=== PATIENT | male | born 1990 | race African-American/Black ===

== ENCOUNTER 2018-12-03 16:11 | Emergency (ER) | payer SELFPAY ==
[2018-12-03] MEDS ORDERED: Amoxicillin/Clavulanate K 875-125 MG Tab PO ONE (16:46)
--- NOTE | 2018-12-03 16:52 | EDM.PDOC ---
ED HPI GENERAL MEDICAL PROBLEM - General Chief Complaint: ENT Problem Stated Complaint: DENTAL AND SINUS COMPLAINT Time Seen by Provider: 12/03/18 16:26 Source of Information: Reports: Patient, RN Notes Reviewed History Limitations: Reports: No Limitations - History of Present Illness INITIAL COMMENTS - FREE TEXT/NARRATIVE: Patient is a 28-year-old male who presents to the ED for the evaluation of the dental complaint and sinus issues. The patient notes that he is having pain to a right upper molar. He states that he has had increased sinus congestion, headache and general sinus pain lately as well. He states he was using NyQuil, DayQuil, and ibuprofen for pain relief, this helps some however does not provide complete relief. Patient recently moved here for work, and resides in [place]. Right Upper Tooth/Teeth Pain Score (Numeric/FACES): 8 - Related Data Allergies Allergy/AdvReac Type Severity Reaction Status Date / Time No Known Allergies Allergy Verified 12/03/18 16:28 Home Meds: Home Meds Amoxicillin/Clavulanate K [Augmentin 875-125 MG] 1 tab PO BID #13 tablet [Rx] Past Medical History HEENT History: Reports: Other (See Below) Other HEENT History: dental abscess Social & Family History - Tobacco Use Smoking Status *Q: Never Smoker - Caffeine Use Caffeine Use: Reports: None - Recreational Drug Use Recreational Drug Use: No ED ROS ENT - Review of Systems Review Of Systems: See Below Constitutional: Denies: Fever, Chills HEENT: Reports: Dental Pain, Sinus Problem Respiratory: Denies: Shortness of Breath Cardiovascular: Denies: Chest Pain GI/Abdominal: Denies: Abdominal Pain, Constipation, Diarrhea, Nausea, Vomiting : Reports: No Symptoms Musculoskeletal: Reports: No Symptoms Skin: Reports: No Symptoms Neurological: Reports: No Symptoms Psychiatric: Reports: No Symptoms Hematologic/Lymphatic: Reports: No Symptoms ED EXAM, ENT - Physical Exam Exam: See Below Exam Limited By: No Limitations General Appearance: Alert, WD/WN, No Apparent Distress Eye Exam: Bilateral Eye: EOMI, Normal Inspection, PERRL Ears: Normal External Exam, Normal Canal, Hearing Grossly Normal, Normal TMs Nose: Normal Inspection, Normal Mucousa, No Blood, Injected Turbinates (R side mainly) Mouth/Throat: Normal Inspection, Normal Gums, Normal Lips, Normal Oropharynx, Normal Teeth, Dental Pain (Right upper molar, erythema at gum line). No: Tonsillar Exudates, Tonsillar Swelling, Trismus Head: Atraumatic, Normocephalic Neck: Normal Inspection, Supple, Non-Tender, Full Range of Motion Respiratory/Chest: No Respiratory Distress, Lungs Clear, Normal Breath Sounds, Chest Non-Tender, Decreased Breath Sounds Cardiovascular: Normal Peripheral Pulses, Regular Rate, Rhythm, No Murmur GI/Abdominal: Normal Bowel Sounds, Soft, Non-Tender, No Distention, No Mass Extremities: Normal Inspection, Normal Capillary Refill Neurological: Alert, Oriented, Normal Cognition, No Motor/Sensory Deficits Psychiatric: Normal Affect, Normal Mood Skin: Warm, Dry, Intact, Normal Color, No Rash Course - Vital Signs Last Recorded V/S: Last Vital Signs Temp 97.6 F 12/03/18 16:25 Pulse 87 12/03/18 16:25 Resp 20 12/03/18 16:25 BP 145/98 H 12/03/18 16:25 Pulse Ox 99 12/03/18 16:25 - Orders/Labs/Meds Orders: Active Orders 24 hr Category Date Time Status Amoxicillin/Clavulanate K [Augmentin 875 MG/125 MG] Med 12/03/18 16:46 Once 1 tab PO ONETIME ONE - Re-Assessments/Exams Free Text/Narrative Re-Assessment/Exam: 12/03/18 16:53 Patient presents to the ED for the evaluation of a dental complaint sinus issues. I believe that her sinus issues are more of a viral illness in nature, however due to his dental complaint, he will be laced on a course of Augment for management. First dose given in the ER today. Departure - Departure Time of Disposition: 16:54 Disposition: Home, Self-Care 01 Preliminary Cause of *Q: Sepsis & Multi System Organ Failure Clinical Impression: Dental abscess, Viral sinusitis - Discharge Information *PRESCRIPTION DRUG MONITORING PROGRAM REVIEWED*: No *COPY OF PRESCRIPTION DRUG MONITORING REPORT IN PATIENT TODD: No Instructions: Dental Abscess, [id number] Referrals: PCP,None [Primary Care Provider] - Additional Instructions: You have been evaluated in the ED for your dental pain. You have been provided with a script for Augmentin. This was electronically sent to the [place] pharmacy located in the [facility] in [place], [place]. Please take this medication as directed. (1 tab twice daily for 7 days or until gone). This antibiotic can cause diarrhea, recommend that you start a probiotic while taking this medication. Aleve provides good pain relief for dental pain. Please take 1-2 tabs twice daily as needed for pain. You may use hot pack/ ice packs to the affected area as tolerated in 15-20 minute intervals. You will ultimately need to find a dentist to provide definitive management of your dental pain. Please return to the ED if your symptoms change or worsen. - My Orders Last 24 Hours: My Active Orders 12/03/18 16:46 Amoxicillin/Clavulanate K [Augmentin 875 MG/125 MG] 1 tab PO ONETIME ONE - Assessment/Plan Last 24 Hours: My Active Orders 12/03/18 16:46 Amoxicillin/Clavulanate K [Augmentin 875 MG/125 MG] 1 tab PO ONETIME ONE
== END 2018-12-03 17:45 | disposition home or self-care (01) ==
LOC: JD.ED 16:11
DX: K04.7 Periapical abscess without sinus (principal); J32.9 Chronic sinusitis, unspecified; B97.89 Other viral agents as the cause of diseases classified elsewhere
CPT/HCPCS: 99282; A9270